=== PATIENT | male | born 1950 | race Caucasian/White ===

== ENCOUNTER → 2017-05-17 | Outpatient (CLI) | payer MEDICARE ==
[2017-05-17 15:22] VITALS: BP 124/88; PULSE 79; TEMP 98.4; BMI 31.8
--- NOTE | 2017-05-17 15:35 | P.HPBAR ---
Bariatric H&P - History & Physicial H&P Date: 05/17/17 History & Physicial: Visit/CC: lap band fill Patient initial contact: Initial weight: Initial weight in pounds: Height: 5 ft 10 in Initial BMI: Last weight: Current weight: 100.879 kg Current weight in pounds: 222.40 Current BMI: 31.8 [place] body weight (based on NIH guidelines): 75.296 kg Excess body weight loss: The patient is a 67 year-old M who presents for Bariatric Assessment. The patient has not been seen several years. He is requesting a fill of his LAP- BAND. He currently is hungry. Past Medical History Past Medical History: Diabetes Mellitus, Hyperlipidemia, Hypertension History of Any Multi-Drug Resistant Organisms: None Reported Past Surgical History: Bariatric Surgery, Orthopedic Surgery Additional Past Surgical History / Comment(s): right arm surgery forearm metall plate lap band surgery Past Anesthesia/Blood Transfusion Reactions: No Reported Reaction Smoking Status: Former smoker Surgical - Exam Vital Signs Temp Pulse BP 98.4 F 79 124/88 05/17/17 15:19 05/17/17 15:19 05/17/17 15:19 - General well developed, no distress - Respiratory left: wheezing - Abdomen Abdomen: soft, non tender Bariatric Assessment & Plan Plan: Patient LAP-BAND was just. He had 1 mL added to his band. He currently has 3 mL in the band. He was ill drink water without difficulty. Follow-up one month. Bariatric Checklist Checklist: Plan: Checklist: EGD: 1. Hiatal hernia: 2. H. Pylori: HgbA1c: Vitamin D: Smoking: Former smoker Primary care physician referral: dr [email or web address] Psychiatry clearance: Cardiology clearance: Sleep study: Diet journal: VTE risk score: VTE risk level: Rehab needs at discharge:
== END ==
LOC: BARWHC3 14:27
PROVIDERS: ATTEND Surgery
DX: Z48.815 Encounter for surgical aftercare following surgery on the digestive system (principal); Z98.84 Bariatric surgery status; F17.200 Nicotine dependence, unspecified, uncomplicated
CPT/HCPCS: 99212